=== PATIENT | female | born 1980 | race Caucasian/White ===

== ENCOUNTER 2017-06-20 14:05 | Emergency (ER) | payer BC ==
[~2017-06-20] VITALS: Ht 170.2 cm; Wt 72.6 kg
[~2017-06-20 14:05] MED LIST: ACIDOPHILUS1 CTB PO; CLINDAMYCIN HC300 MG PO; VENTOLIN H0.09 MG/Ac IH
--- NOTE | 2017-06-20 15:00 | Urgent Treatment Center Report ---
History of Present Issue Date/Time Seen by Provider 06/20/17 4825 Visit Reason Pt arrived:Wheelchair Presenting Problem:PT STATES SHE HURT HER LEFT FOOT ON SATURDAY. Location if Accident: Onset of symptoms date/time:/ or onset unknown for:MEDICAL HX UNKNOWN Have you (or family members/close friends) recently traveled outside the [place]? N If Yes, where/when: Have you had exposure to infectious disease within the past month? TB? Other? Specify: c/o left lateral foot pain. Missed a step and turned ankle on Saturday, 3 days ago. Still painful despite rest, ice, elevation. Swelling has improved, bruising has gotten worse. Pain worse w/ ambulation and ankle ROM. Denies N/T Source patient Exam Limitations no limitations ALLERGIES Coded Allergies: Penicillins (01/13/17) Home Medications Reported Medications Albuterol Sulfate (Ventolin Hfa) 0.09 MG IH DAILY #18 History Medical History General CAD? No Angina: No NM: No Hypertension? No Hyperlipidemia? No CHF? No DVT? No PE? No COPD? No Asthma? Yes Anemia? No GERD? No Gastric ulcers? No GI Bleed? No Hernia? No Thyroid Problems? No Hypothyroidism? No CVA? No Seizures? No Diabetes? No Renal Insuffiency? No UTI? No Stones? No BPH? No GB Disease: No Nephritic Syndrome? No Asplenia? No Hepatitis? No Sickle Cell Disease? No Arthritis? No Migraines? No Cataracts? No Glaucoma? No MRSA? No HIV? No TB? No Anxiety? No Depression? No Cancer? No Immunization HX DT/Tetanus Unknown Surgical Hx Previous Surgery?Y R INDEX FINGER PIN TO L FEMUR R PINKY TOE Social History Smoking Hx Smoker: Never Smoker Tobacco: No Alcohol Alcohol: No Review of Systems All Other Systems Reviewed and Negative Musculoskeletal see HPI, denies other (no other pain) Skin see HPI Psychiatric/Neurological see HPI Physical Exam Vital Signs Vital Signs Date Time Temp Pulse Resp B/P Pulse O2 O2 Flow FiO2 Ox Delivery Rate 06/20 1513 100.5 63 20 123/66 99 06/20 1418 100.5 63 20 123/66 99 General Appearance normal appearance, no apparent distress Respiratory Status No: respiratory distress. Cardiovascular no peripheral edema Peripheral Pulses Pulses normal Yes (DP/PT) Back gait abnormality (limping, favoring left) Extremities limited ROM left ankle due to pain, pain worse with inversion and dorsiflexion, mild swelling, ecchymosis and tenderness left lateral midfoot/ proximal 5th metatarsal Neurologic alert, no motor/sensory deficits Skin normal color, warm/dry Medical Decision Making LABS/Meds/Orders Pt receiving controlled substance in ED? No Results/Orders Orders Procedure Date/time Status STABILIZE JOINT 06/20 1500 Active FOOT-LT-3 VIEWS 06/20 1415 Active ANKLE-LT-3 VIEWS 06/20 1415 Active XRAY/CT/US XRAY/CT/US XRAY ankle (left), foot (left) XR interpretation by reviewed by me (w/ Dr. Dove, ER MD) Xray Results no acute findings but abnormal calcification distal tibia, ER MD suggest follow up for lead level Departure Departure Time of Disposition 1458 Disposition DC Home or Self Care(routine) Clinical Impression Primary Impression: Sprain of left foot Qualifiers: Encounter type: initial encounter Qualified Code: S93.602A - Unspecified sprain of left foot, initial encounter Condition STABLE Referrals NO REFERRAL we have provided you with a list of providers accepting patients. I would encourage you find him a new primary care provider and make an appt TINA as it can take weeks to get a new patient appointment. Be sure to tell them of abnormal xray and that a lead level was suggested. DAVID WALTERS DPM call office tomorrow. Report seen in [facility] this evening. xray negative but persistant pain. Patient Instructions DI for Foot Sprain, How to Apply an Yash Wrap, How To Perform RICE (Rest, Ice, Compress, Elevate), How to Use Crutches Additional Instructions * non weight bearing left foot. Use crutches * Rest * ice 15-20 mins 3-4 times a day * Yash wrap for support and swelling unless in shower. Be sure not too tight but not too loose either * Elevate as discussed as much as possible to help reduce swelling and therefore , pain * Ibuprofen every 6 hours as needed for pain and inflammation. If you need something more, you can take tylenol every 4 hours as needed as long as your primary care provider has told you it is ok to take both. Discharge Counseling Counseled pt/family regarding diagnosis, test results, medications/RX, home care, follow up needs at 1545
[2017-06-20 15:13] VITALS: BP 123/66
--- NOTE | 2017-06-21 08:29 | RADIOLOGY REPORT PS360 ---
FOOT-LT-3 VIEWS COMPARISON: None HISTORY: Left foot pain after injury TECHNIQUE: AP lateral and oblique views FINDINGS: There is no fracture or dislocation. Soft tissues are normal. The plantar arch is normal. IMPRESSION: Negative left foot
--- NOTE | 2017-06-21 08:29 | RADIOLOGY REPORT PS360 ---
ANKLE-LT-3 VIEWS COMPARISON: None HISTORY: Left ankle pain after injury TECHNIQUE: AP lateral and oblique views FINDINGS: The medial and lateral malleolus appear intact and the ankle mortise is normal. There is no soft tissue swelling. IMPRESSION: Negative left ankle
--- OUTSIDE RECORDS SUMMARY | 2017-06-27 20:07 | External Medical Summary Rpt | CCD ---
Author Author , [facility] Organization [facility] Address Unknown Phone Care Team Providers Care Insurance Risk Manager Name Role Phone BUTROS KYUNG, BUTROS Unavailable Unavailable KYUNG [facility], Unavailable Unavailable [facility] DAVE RYA, Unavailable Unavailable DAVE RYA DAVE RYA, Unavailable Unavailable DAVE RYA PREETI DUGAN, Unavailable Unavailable PREETI DUGAN [facility], Unavailable Unavailable [facility] # Unavailable Unavailable [id number], [facility] # [id number] [facility] Unavailable Unavailable [facility]ING, [facility] Unavailable Unavailable [facility]ING, [facility] Unavailable Unavailable BILL HOLDINGS, [facility]AT[facility]ILL [facility]INGS ISABELLE JIMENEZ, Unavailable Unavailable ISABELLE JIMENEZ [facility] Unavailable Unavailable [facility], [facility], [facility] Unavailable Unavailable DRUGS [facility], [facility] Unavailable Unavailable [facility] Unavailable Unavailable [facility], [facility] MUNIZ SYE, MUNIZ SYE Unavailable Unavailable [facility] Unavailable Unavailable EM[facility]Y PH[facility], [facility], [facility]GENC[facility]YS [facility], Unavailable [facility]available [facility] Unavailable Unavailable [facility] DAVID Purpose Continuity of Care Document - 11-15-2008 through 2016 Problems Code Diagnosis DOS Provider Status 60635 ASTHMA, 06-02-2014 [facility] PRIMARY , CARE CLI UNSPECIFIED STATUS 2449 UNSPECIFIED 05-19-2014 [facility] HYPOTHYROID ISM 3671 MYOPIA 11-16-2013 DAVE RYA 89920 ASTHMA 07-11-2010 [facility] UNSPECIFIED [facility] WITH DAVID STATUS ASTHMATICUS 47493 ASTHMA 07-11-2010 [facility] UNSPECIFIED N EMERGENCY WITH PHYS EXACERBATIO N 21993 SHORTNESS 07-11-2010 [facility] [place] [facility] 75666 OTHER 07-11-2010 [facility] DYSPNEA AND UEHLING RESPIRATORY ABNORMALITI ES V1270 PERSONAL 07-11-2010 [facility] HISTORY [facility] UNSPECIFIED DAVID DIGESTIVE DISEASE 7831 ABNORMAL 06-19-2010 [facility] 7850 UNSPECIFIED 06-19-2010 [facility] TACHYCARDIA HOLDING V5869 LONG-TERM 06-19-2010 [facility] (CURRENT) AMERIC USE OF HOLDING OTHER MEDICATIONS 5990 URINARY 05-09-2010 [facility] TRACT [facility] INFECTION DAVID SITE NOT SPECIFIED 6259 UNSPEC 05-09-2010 [facility] SYMPTOM [facility] ASSOC DAVID W/FEMALE GENITAL ORGANS 7881 DYSURIA 05-09-2010 [facility] DAVID 15073 ABDOMINAL 05-09-2010 [facility] PAIN, N EMERGENCY UNSPECIFIED PHYS SITE 55772 LUMP OR 04-17-2010 [facility] BREAST PLLC V259 UNSPECIFIED 03-30-2010 [facility] V7231 ROUTINE 03-30-2010 LABORATORY GYNECOLOGIC [facility] OF [facility] EXAMINATION HOLDINGS 4930 EXTRINSIC 03-27-2010 [facility] ASTHMA SURGICAL V0481 NEED 09-06-2009 [facility] PROPHYLACTI CLINIC C PLLC VACCINATION &INOCULATIO N FLU V0489 NEED PROPH 09-06-2009 [facility] OTH VIRAL DZ 7840 HEADACHE 04-07-2009 [facility] 7820 DISTURBANCE 11-15-2008 [facility] SKIN N EMERGENCY SENSATION SERV PC Medications Na ND Rx Da Fi Fi Am Da Di Ph RX Ph St me C No te ll ll ou ys ag ar # ys at rm s nt no ma ic us Or Da si cy ia de te s n re d AZ 00 10 10 0 6. 5 KR 60 IRVING Ac IT 09 -2 -2 00 OG 81 NE ti HR 37 6- 7- 0 ER 15 S ve OM 14 20 20 4 GR YC 61 10 10 PH EG IN 8 AR OR MA Y 25 CY C 0 # MG 24 TA 71 BL 2 ET ME 59 10 10 0 21 6 KR 60 IRVING Ac TH 74 -2 -2 .0 OG 81 NE ti YL 60 6- 7- 00 ER 15 S ve AL 00 20 20 5 GR ED 10 10 10 PH EG NI 3 AR OR SO MA Y LO CY C NE # 4 24 MG 71 2 DO SE PK 00 10 10 0 [address] Ac 00 -2 -2 .0 OG 80 EN ti 60 5- 5- 00 ER 50 NE ve 11 20 20 1 N 73 10 10 PH BR 1 AR EN MA DA CY J # 24 71 2 AD 00 10 10 0 [address] Ac VA 17 -2 -2 .0 OG 80 EN ti IR 30 5- 5- 00 ER 50 NE ve 69 20 20 2 N 10 50 10 10 PH BR 0- 0 AR EN 50 MA DA CY J DI # SK US 24 71 2 AL 00 10 10 0 [address] Ac BU 48 -2 -2 0. OG 80 EN ti TE 79 5- 5- 00 ER 53 NE ve RO 50 20 20 0 9 N L 16 10 10 PH BR TRINIDAD 0 AR EN L MA DA 2. CY J 5 # MG /3 24 [address] 64 10 10 2 60 30 KR 60 PA Ac 67 -2 -2 .0 OG 80 RK ti 90 5- 5- 00 ER 62 ER ve 90 20 20 7 60 10 10 PH NC 1 AR NC MA CARUSO CY # 24 71 2 64 09 09 1 60 30 KR 60 PA Ac 67 -2 -2 .0 OG 73 RK ti 90 2- 2- 00 ER 99 ER ve 90 20 20 2 60 10 10 PH NC 1 AR NC MA CARUSO CY # 24 71 2 AL 00 07 09 1 [address] Ac BU 48 -0 -2 0. OG 60 EN ti TE 79 7- 1- 00 ER 11 NE ve RO 50 20 20 0 3 N L 12 10 10 PH BR TRINID[place] 5 AR EN L MA DA 2. CY J 5 # MG /3 24 [address] 00 07 09 3 28 28 KR 60 PA Ac 43 -1 -2 .0 OG 61 RK ti 00 5- 1- 00 ER 45 ER ve 53 20 20 7 01 10 10 PH NC 4 AR NC MA CARUSO CY # 24 71 2 00 10 09 2 [address] Ac 00 -2 -2 .0 OG 14 EN ti 60 9- 0- 00 ER 81 NE ve 11 20 20 1 N 73 09 10 PH BR 1 AR EN MA DA CY J # 24 71 2 AD 00 07 09 2 [address] Ac VA 17 -0 -2 .0 OG 60 EN ti IR 30 7- 0- 00 ER 11 NE ve 69 20 20 0 N 10 50 10 10 PH BR 0- 0 AR EN 50 MA DA CY J DI # SK US 24 71 2 65 08 08 0 6. 2 KR 60 SH Ac 16 -2 -2 00 OG 68 AH ti 20 5- 5- 0 ER 26 ve 52 20 20 2 SY 01 10 10 PH ED 0 AR S MA CY # 24 71 2 NI 00 08 08 0 13 6 KR 60 SH Ac TR 18 -2 -2 .0 OG 68 AH ti OF 50 5- 5- 00 ER 26 ve UR 12 20 20 3 SY AN 20 10 10 PH ED TO 1 AR S IN AXEL CHAVEZ MO # NO -M 24 CR 71 2 10 0 MG AL 00 07 08 1 [address] Ac BU 48 -0 -1 0. OG 60 EN ti TE 79 7- 9- 00 ER 11 NE ve RO 50 20 20 0 3 N L 12 10 10 PH BR TRINIDAD 5 AR EN L MA DA 2. CY J 5 # MG /3 24 [address] 00 10 08 2 [address] Ac 00 -2 -1 .0 OG 14 EN ti 60 9- 8- 00 ER 81 NE ve 11 20 20 1 N 73 09 10 PH BR 1 AR EN MA DA CY J # 24 71 2 AD 00 07 08 2 [address] Ac VA 17 -0 -1 .0 OG 60 EN ti IR 30 7 8- 00 ER 11 NE ve 69 20 20 0 N 10 50 10 10 PH BR 0- 0 AR EN 50 MA DA CY J DI # SK US 24 71 2 00 07 08 3 28 28 KR 60 PA Ac 43 -1 -1 .0 OG 61 RK ti 00 5- 8- 00 ER 45 ER ve 53 20 20 7 01 10 10 PH NC 4 AR NC MA CARUSO CY # 24 71 2 64 07 08 1 60 30 KR 60 PA Ac 67 -1 -1 .0 OG 61 RK ti 90 5- 8- 00 ER 53 ER ve 90 20 20 5 60 10 10 PH NC 1 AR NC MA CARUSO CY # 24 71 2 VA 00 07 07 0 70 7 KR 60 PA Ac ND 24 -2 -2 .0 OG 62 RK ti AZ 50 0- 0- 00 ER 18 ER ve OL 86 20 20 4 E 07 10 10 PH NC VA 0 AR NC GI MA CARUSO NA CY L # 0. 75 24 % 71 GE 2 L 00 07 07 0 14 7 KR 60 PA Ac 59 -1 -1 .0 OG 61 RK ti 13 5- 5- 00 ER 45 ER ve 97 20 20 5 05 10 10 PH NC 0 AR NC MA CARUSO CY # 24 71 2 00 07 07 3 28 28 KR 60 PA Ac 43 -1 -1 .0 OG 61 RK ti 00 5- 5- 00 ER 45 ER ve 53 20 20 7 01 10 10 PH NC 4 AR NC MA CARUSO CY # 24 71 2 64 07 07 1 60 30 KR 60 PA Ac 67 -1 -1 .0 OG 61 RK ti 90 5- 5- 00 ER 53 ER ve 90 20 20 5 60 10 10 PH NC 1 AR NC MA CARUSO CY # 24 71 2 AD 00 07 07 2 [address] Ac VA 17 -0 -0 .0 OG 60 EN ti IR 30 7- 7- 00 ER 11 NE ve 69 20 20 0 N 10 50 10 10 PH BR 0- 0 AR EN 50 MA DA CY J DI # SK US 24 71 2 LE 00 10 07 2 [address] Ac VO 52 -2 -0 .0 OG 14 EN ti TH 71 7- 6- 00 ER 49 NE ve YR 34 20 20 4 N OX 11 09 10 PH BR IN 0 AR EN E MA DA 25 CY J # MC G 24 TA 71 BL 2 ET 00 10 07 2 [address] Ac 00 -2 -0 .0 OG 14 EN ti 60 9- 6- 00 ER 81 NE ve 11 20 20 1 N 73 09 10 PH BR 1 AR EN MA DA CY J # 24 71 2 59 10 07 2 7[address] Ac 31 -2 -0 29 OG 14 EN ti 00 9- 6- 9 ER 81 NE ve 17 20 20 3 N 78 09 10 PH BR 0 AR EN MA DA CY J # 24 71 2 AL 00 10 07 [address] Ac BU 48 -2 -0 0. OG 14 EN ti TE 79 9- 6- 00 ER 81 NE ve RO 50 20 20 0 4 N L 12 09 10 PH BR TRINIDAD 5 AR EN L MA DA 2. CY J 5 # MG /3 24 [address] 59 10 03 2 7[address] Ac 31 -2 -2 29 OG 14 EN ti 00 7- 9- 9 ER 49 NE ve 17 20 20 1 N 78 09 10 PH BR 0 AR EN MA DA CY J # 24 71 2 AL 00 10 03 [address] Ac BU 48 -2 -2 0. OG 14 EN ti TE 79 9- 9- 00 ER 81 NE ve RO 50 20 20 0 4 N L 12 09 10 PH BR TRINIDAD 5 AR EN L MA DA 2. CY J 5 # MG /3 24 [address] LE 00 12 03 [address] Ac VO 52 -1 -2 .0 OG 23 EN ti TH 71 4- 9- 00 ER 90 NE ve YR 34 20 20 9 N OX 20 09 10 PH BR IN 1 AR EN E MA DA 50 CY J # MC G 24 TA 71 BL 2 ET 59 01 03 2 8[address] Ac 31 -2 -2 50 OG 31 EN ti 00 8- 9- 0 ER 72 NE ve 57 20 20 9 N 92 10 10 PH BR 0 AR EN MA DA CY J # 24 71 2 00 10 03 2 [address] Ac 00 -2 -0 .0 OG 14 EN ti 60 7- 4- 00 ER 49 NE ve 11 20 20 5 N 73 09 10 PH BR 1 AR EN MA DA CY J # 24 71 2 LE 00 12 03 2 [address] Ac VO 52 -1 -0 .0 OG 23 EN ti TH 71 4- 4- 00 ER 90 NE ve YR 34 20 20 9 N OX 20 09 10 PH BR IN 1 AR EN E MA DA 50 CY J # MC G 24 TA 71 BL 2 ET 59 01 03 2 8[address] Ac 31 -2 -0 50 OG 31 EN ti 00 8- 4- 0 ER 72 NE ve 57 20 20 9 N 92 10 10 PH BR 0 AR EN MA DA CY J # 24 71 2 59 10 02 01 7[address] Ac 31 -2 -2 29 OG 14 EN ti 00 7- 6- 9 ER 49 NE ve 17 20 20 1 N 78 09 10 PH BR 0 AR EN M DA L- J 71 2 59 01 02 00 8[address] Ac 31 -2 -2 50 OG 31 EN ti 00 8- 6- 0 ER 72 NE ve 57 20 20 9 N 92 10 10 PH BR 0 AR EN M DA L- J 71 2 AZ 00 01 02 00 6[address] Ac IT 2 - 00 OG 31 EN ti HR 37 8- 1- 0 ER 72 NE ve OM 14 20 20 7 N YC 61 10 10 PH BR IN 8 AR EN M DA 25 L- J 0 71 MG 2 TA BL ET 00 01 02 00 5[address] Ac - 00 OG 31 EN ti 51 8- 1- 0 ER 72 NE ve 29 20 20 8 N 00 10 10 PH BR 6 AR EN M DA L- J 71 2 ME 59 01 02 00 [address] Ac TH 74 -2 -1 .0 OG 31 EN ti YL 60 8- 1- 00 ER 73 NE ve AL 00 20 20 0 N ED 10 10 10 PH BR NI 3 AR EN SO M DA LO L- J NE 71 4 2 MG DO SE PK 59 10 01 02 8[address] Colin 31 -2 -2 50 OG 14 EN ti 00 7- 8- 0 ER 49 NE ve 57 20 20 3 N 92 09 10 PH BR 0 AR EN M DA L- J 71 2 59 10 12 01 8[address] Colin 31 -2 -3 50 OG 14 EN ti 00 7- 1- 0 ER 49 NE ve 57 20 20 3 N 92 09 09 PH BR 0 AR EN M DA L- J 71 2 LE 00 12 12 00 [address] Ac VO 52 -1 -3 .0 OG 23 EN ti TH 71 4- 1- 00 ER 90 NE ve YR 34 20 20 9 N OX 20 09 09 PH BR IN 1 AR EN E M DA 50 L- J 71 MC 2 G TA BL ET 00 10 12 01 [address] Ac 00 -2 -1 .0 OG 14 EN ti 60 7- 7- 00 ER 49 NE ve 11 20 20 5 N 73 09 09 PH BR 1 AR EN M DA L- J 71 2 LE 00 10 12 01 [address] Ac VO 52 -2 -1 .0 OG 14 EN ti TH 71 7- 7- 00 ER 49 NE ve YR 34 20 20 4 N OX 10 09 09 PH BR IN 1 AR EN E M DA 25 L- J 71 MC 2 G TA BL ET 59 10 12 00 8[address] Colin 31 -2 -1 50 OG 14 EN ti 00 7- 7- 0 ER 49 NE ve 57 20 20 3 N 92 09 09 PH BR 0 AR EN M DA L- J 71 2 LE 00 10 11 00 [address] Ac VO 52 -2 -0 .0 OG 14 EN ti TH 71 7- 5- 00 ER 49 NE ve YR 34 20 20 4 N OX 10 09 09 PH BR IN 1 AR EN E M DA 25 L- J 71 MC 2 G TA BL ET 49 10 11 00 [address] Ac 50 -2 -0 0. OG 14 EN ti 20 7- 5- 00 ER 48 NE ve 69 20 20 0 9 N 76 09 09 PH BR 1 AR EN M DA L- J 71 2 00 10 11 00 [address] Ac 00 -2 -0 .0 OG 14 EN ti 60 7- 5- 00 ER 49 NE ve 11 20 20 5 N 73 09 09 PH BR 1 AR EN M DA L- J 71 2 59 10 11 00 7[address] Ac 31 -2 -0 29 OG 14 EN ti 00 7- 5- 9 ER 49 NE ve 17 20 20 1 N 78 09 09 PH BR 0 AR EN M DA L- J 71 2 59 07 10 00 8[address] Colin 31 -2 -2 50 OG 76 EN ti 00 3- 2- 0 ER 84 NE ve 57 20 20 0 N 92 09 09 PH BR 0 AR EN M DA L- J 71 2 00 07 10 02 [address] Colin 00 -2 -0 .0 OG 76 EN ti 60 3- 8- 00 ER 83 NE ve 11 20 20 8 N 73 09 09 PH BR 1 AR EN M DA L- J 71 2 LE 00 09 09 00 [address] Colin VO 52 -1 -2 .0 OG 05 EN ti TH 71 0- 4- 00 ER 31 NE ve YR 34 20 20 4 N OX 10 09 09 PH BR IN 1 AR EN E M DA 25 L- J 71 MC 2 G TA BL ET 00 07 09 01 [address] Ac 00 -2 -1 .0 OG 76 EN ti 60 3- 0- 00 ER 83 NE ve 11 20 20 8 N 73 09 09 PH BR 1 AR EN M DA L- J 71 2 59 07 07 00 7[address] Colin 31 -2 -3 29 OG 76 EN ti 00 3- 0- 9 ER 83 NE ve 17 20 20 9 N 78 09 09 PH BR 0 AR EN M DA L- J 71 2 49 07 07 00 [address] Ac 50 -2 -3 0. OG 76 EN ti 20 3- 0- 00 ER 84 NE ve 69 20 20 0 1 N 72 09 09 PH BR 4 AR EN M DA L- J 71 2 00 07 07 00 [address] Ac 00 -2 -3 .0 OG 76 EN ti 60 3- 0- 00 ER 83 NE ve 11 20 20 8 N 73 09 09 PH BR 1 AR EN M DA L- J 71 2 59 10 07 02 8. 25 KR 69 BU Ac 31 -1 -3 50 OG 30 TR ti 00 6- 0- 0 ER 77 OS ve 57 20 20 4 92 08 09 PH RE 0 AR ZK M AL L- LA 71 2 59 10 07 01 8. 20 KR 69 BU Ac 31 -1 -0 50 OG 30 TR ti 00 6- 2- 0 ER 77 OS ve 57 20 20 4 92 08 09 PH RE 0 AR ZK M AL L- LA 71 2 59 10 06 00 8. 20 KR 69 BU Ac 31 -1 -1 50 OG 30 TR ti 00 6- 8- 0 ER 77 OS ve 57 20 20 4 92 08 09 PH RE 0 AR ZK M AL L- LA 71 2 16 05 04 00 18 30 RO 15 Ac 25 -1 -0 0. SS 21 LL ti 20 9- 9- 00 76 EY ve [address] 1 76 08 09 UG AN 6 S IT A L Immunization Name Date Rout CVX Reac Dose Comm Prov Is Faci e tion ent ider Refu lity Give sed n IIV3 12-2 141 DREN No FAMI 2-20 NEN, LY VACC 09 CARE INE BREN SPLI DA J CLIN T IC VIRU PLLC S 0.5 ML DOSA GE IM USE Procedures Procedure DOS Code Location Performer Comment COLLECTIO 88684 [facility] N VENOUS [address] [place] [address] [place] [address] [facility] THYROID [address] [place] [address] STIMULATI NG HORMONE TSH OPHTH 38190 [facility] 4 RYA RYA XM&EVAL COMPRE NEW PT 1/> VST RADIOLOGI 55068 [facility] C EXAM 0 [place] CHEST 2 [facility] DAV[facility] VIEWS FRONTAL&L ATERAL INJ J2930 [facility] METHYLPRD 0 [place] NISOLONE [facility] DAVID SODIUM SUCCNAT TO 125 MG PRESSURIZ 51270 [facility] ED/NONPRE 0 [place] SSURIZED DAV[facility] DAVID INHALATIO N TREATMENT LIPID 80221 [facility] PANEL 0 [facility] HOLDING HOLDING GENERAL 62814 [facility] HEALTH 0 AMERIC AMERIC PANEL HOLDING HOLDING URNLS DIP 78115 [facility] 0 [place] STICK/TAB [facility] LET REAGENT AUTO MICROSCOP Y SUSCEPTIB 93530 [facility] LTY STDY 0 [place] ANTIMICRB [facility] IAL MICRO/AGA R DILUTJ GONADOTRO 22964 [facility] PIN 0 [place] CHORIONIC [facility]ID DAVID QUALITATI VE CULTURE 20967 [facility] BCT 0 [place] ISOL&PRSM [facility] DAVID PTV ID ISOLATE EA URINE NEBULIZER E0570 [facility] WITH 0 SURGICAL SURGICAL COMPRESSO R ADMN SET A7003 [facility] SM VOL 0 SURGICAL SURGICAL NONFILTR PNEUMAT NEBULIZR DISPBL AREO MASK A7015 [facility] USED W/ 0 SURGICAL SURGICAL DME NEB US BREAST 45959 [facility] REAL 0 [place] TIME DAVID DAVID W/IMAGE DOCUMENTA TION IADNA 89647 LABORATOR LABORATOR CHLAMYDIA 0 Y MUNA OF Y MUNA OF BILL BILL TRACHOMAT HOLDINGS HOLDINGS IS AMPLIFIED PROBE TQ IADNA 14169 LABORATOR LABORATOR PAPILLOMA 0 Y MUNA OF Y MUNA OF VIRUS BILL BILL HUMAN HOLDINGS HOLDINGS AMPLIFIED PROBE TQ CYTP C/V 60252 LABORATOR LABORATOR AUTO THIN 0 Y MUNA OF Y MUNA OF LYR BILL BILL PREPJ SCR HOLDINGS HOLDINGS MNL RESCR PHYS IADNA 96199 LABORATOR LABORATOR NEISSERIA 0 Y MNUA OF Y MUNA OF BILL BILL GONORRHOE HOLDINGS HOLDINGS AE AMPLIFIED PROBE TQ ADMN SET A7003 [facility] SM VOL 0 SURGICAL SURGICAL NONFILTR PNEUMAT NEBULIZR DISPBL SPMTRY 86430 [facility], W/VC 0 CARE PREETI J EXPIRATOR CLINIC Y CHRISTOPHER PLLC W/WO MXML VOL VNTJ IIV3 31952 [facility], VACCINE 9 CARE PREETI J SPLIT CLINIC VIRUS 0.5 PLLC ML DOSAGE IM USE IM ADM 91676 [facility], PRQ ID 9 CARE PREETI J SUBQ/IM CLINIC [place] [address] [facility] THYROID 9 AMERIC AMERIC STIMULATI HOLDING HOLDING NG HORMONE TSH NONINVASI 13770 [facility], VE 9 CARE PREETI J EAR/PULSE CLINIC [place] [address] [facility] THYROID 9 AMERIC AMERIC STIMULATI HOLDING HOLDING NG HORMONE TSH SPMTRY 10385 [facility], W/VC 9 CARE PREETI J EXPIRATOR CLINIC Y CHRISTOPHER PLLC W/WO MXML VOL VNTJ BRNCDILAT 10078 [facility], RSPSE 9 CARE PREETI J SPMTRY CLINIC PRE&POST- PLLC BRNCDILAT ADMN ECHO 98938 [facility] TTHRC R-T 9 [facility] 2D [facility] W/WOM-MOD [facility] SPEC&COLR D THYROID 05365 [facility] HORM 9 AMERIC AMERIC UPTK/THYR HOLDING HOLDING OID HORMONE BINDING RATIO ECG 40873 [facility], ROUTINE 9 CARE PREETI J ECG CLINIC W/LEAST PLLC 12 LDS W/I&[place] [address] LAB [facility] THYROXINE 9 AMERIC AMERIC TOTAL HOLDING HOLDING NONINVASI 16537 [facility], VE 9 CARE PREETI J EAR/PULSE CLINIC OXIMETRY PLLC SINGLE DETER GENERAL 48241 [facility] HEALTH 9 AMERIC AMERIC PANEL HOLDING HOLDING APPLICATI 25973 [facility] SHORT 9 NIA Da Silva ARM EMERGENCY SPLINT SERV PC FOREARM-H AND STATIC Encounters Encounter Start End Date Code Location Performer Type Date OFFICE 63983 [facility] 4 4 [facility]ULT [facility] T VISIT PRIMARY 15 CARE CLI MINUTES OFFICE 21421 [facility] 4 4 ADULT [facility] T VISIT PRIMARY 15 CARE CLI MINUTES [facility]OSPITAL [facility] - OTHER 4 4 HOSPITAL OFFICE 72497 [facility] OUT[facility] 4 4 ADULT KY[facility]G T NEW 45 PRIMARY MINUTES CARE CLI EMERGENCY 84324 [facility] 0 0 [facility] T VISIT HIGH/URGE NT SEVERITY [facility] 0 0 [facility] - 0 0 [facility] EMERGENCY 04676 [facility] 0 [facility] V[facility] PHYS HIGH/URGE NT SEVERITY EMERGENCY 46333 [facility] 0 0 [facility] VISIT MODERATE SEVERITY OFFICE 37020 FAMILY DRENNEN, OUTPATIEN 0 0 CARE PREETI J T VISIT CLINIC [address] [facility] - 0 0 [facility] PERIODIC 92956 [facility] DRENNEN, PREVENTIV 0 0 CARE PREETI J E MED EST CLINIC PATIENT PLLC 18-39 YRS OFFICE 12800 FAMILY DRENNEN, OUTPATIEN 0 0 CARE PREETI J T VISIT CLINIC 15 PLLC MINUTES OFFICE [id number] FAMILY DRENNEN, OUTPATIEN 9 9 CARE PREETI J T VISIT CLINIC 15 PLLC MINUTES OFFICE [id number] FAMILY DRENNEN, OUTPATIEN 9 9 CARE PREETI J T VISIT CLINIC 15 PLLC MINUTES OFFICE 73716 FAMILY DRENNEN, OUTPATIEN 9 9 CARE PREETI J T VISIT CLINIC [facility] PLLC MINUTES [facility] 9 IAN [facility] OFFICE 77764 FAMILY DRENNEN, OUTPATIEN 9 9 CARE PREETI J T VISIT CLINIC 15 PLLC MINUTES EMERGENCY 95856 [facility] JIMENE[facility], 9 9 [facility] EMERGENCY T VISIT SERV PC MODERATE SEVERITY
--- OUTSIDE RECORDS SUMMARY | 2017-06-27 20:07 | External Medical Summary Rpt | CCD ---
Author Author , [facility] Organization [facility] Address Unknown Phone Care Team Providers Care Licensing Engineer Name Role Phone BUTROS KYUNG, BUTROS Unavailable Unavailable KYUNG [facility], Unavailable Unavailable [facility] DAVE RYA, Unavailable Unavailable DAVE RYA DAVE RYA, Unavailable Unavailable DAVE RYA PREETI DUGAN, Unavailable Unavailable PREETI DUGAN [id number], Unavailable Unavailable [facility] # Unavailable Unavailable [id number], [facility] # [id number] [facility] Unavailable Unavailable HOLDING, [facility] Unavailable Unavailable HOLDING, [facility] LABORATORY [facility] Unavailable Unavailable BILL HOLDINGS, LABORATORY [facility] BILL HOLDINGS ISABELLE JIMENEZ, Unavailable Unavailable ISABELLE JIMENEZ [facility] Unavailable Unavailable CARE [facility], [facility], [facility] Unavailable Unavailable DRUGS [facility], [facility] Unavailable Unavailable SURGICAL [facility] Unavailable Unavailable [facility], [facility] MUNIZ SYE, MUNIZ SYE Unavailable Unavailable [facility] Unavailable Unavailable EMER[facility]Y PH[facility], [facility], Unavailable Unavailable [facility] Unavailable Unavailable [facility] DAVID Purpose Continuity of Care Document - 11-15-2008 through 2016 Problems Code Diagnosis DOS Provider Status 87135 ASTHMA, 06-02-2014 [facility] UNSPECIFIED PRIMARY , CARE CLI UNSPECIFIED STATUS 2449 UNSPECIFIED 05-19-2014 [facility] HYPOTHYROID ISM 3671 MYOPIA 11-16-2013 DAVE RYA 32327 ASTHMA 07-11-2010 [facility] UNSPECIFIED [facility] WITH DAVID STATUS ASTHMATICUS 70665 ASTHMA 07-11-2010 [facility] UNSPECIF[facility] N EMERGENCY WITH PHYS EXACERBATIO N 79229 SHORTNESS 07-11-2010 [facility] [place] [facility] RADIOLOG[facility] 76761 OTHER 07-11-2010 [facility] DYSPNEA AND [place] RESPIRATORY ABNORMALITI ES V1270 PERSONAL 07-11-2010 [facility] HISTORY [facility] UNSPECIFIED DAVID DIGESTIVE DISEASE 7831 ABNORMAL 06-19-2010 [facility] WEIGHT GAIN AMERIC HOLDING 7850 UNSPECIFIED 06-19-2010 [facility] TACHYCARDIA HOLDING V5869 LONG-TERM 06-19-2010 LAB [facility] (CURRENT) AMERIC USE OF HOLDING OTHER MEDICATIONS 5990 URINARY 05-09-2010 [facility] TRACT [facility] INFECTION DAVID SITE NOT SPECIFIED 6259 UNSPEC 05-09-2010 [facility] SYMPTOM [facility] ASSOC DAVID W/FEMALE GENITAL ORGANS 7881 DYSURIA 05-09-2010 [facility] DAVID 98678 ABDOMINAL 05-09-2010 [facility], N EMERGENCY UNSPECIFIED PHYS SITE 23777 [place] 04-17-2010 [facility] BREAST PLLC V259 UNSPECIFIED 03-30-2010 [facility] V7231 ROUTINE 03-30-2010 LABORATORY GYNECOLOGIC [facility] OF [facility] EXAMINATION HOLDINGS 4930 EXTRINSIC 03-27-2010 [facility] ASTHMA SURGICAL V0481 NEED 09-06-2009 [facility] PROPHYLACTI CLINIC C PLLC VACCINATION &INOCULATIO N FLU V0489 NEED PROPH 09-06-2009 [facility] 7840 HEADACHE 04-07-2009 [...] 6- 7- 00 ER 15 S ve OR 00 20 20 5 GR ED 10 [...] 20 20 7 60 10 10 PH DC 1 AR NC MA CARUSO CY # 24 71 2 64 09 09 1 60 30 KR 60 PA Ac 67 -2 -2 .0 OG 73 RK ti 90 2- 2- 00 ER 99 ER ve 90 20 20 2 60 10 10 PH DC 1 AR NC MA CARUSO CY # [...] 20 20 7 01 10 10 PH DC 4 AR NC MA CARUSO CY # [...] 20 20 7 01 10 10 PH DC 4 AR NC MA CARUSO CY # 24 71 2 64 07 08 1 60 30 KR 60 PA Ac 67 -1 -1 .0 OG 61 RK ti 90 5- 8- 00 ER 53 ER ve 90 20 20 5 60 10 10 PH DC 1 AR NC MA CARUSO CY # 24 71 2 VA 00 07 07 0 70 7 KR 60 PA Ac ND 24 -2 -2 .0 OG 62 RK ti AZ 50 0- 0- 00 ER 18 ER ve OL 86 20 20 4 E 07 10 10 PH DC VA 0 AR NC GI MA CARUSO NA CY L # 0. 75 24 % 71 GE 2 L 00 07 07 0 14 7 KR 60 PA Ac 59 -1 -1 .0 OG 61 RK ti 13 5- 5- 00 ER 45 ER ve 97 20 20 5 05 10 10 PH DC 0 AR NC MA CARUSO CY # 24 71 2 00 07 07 3 28 28 KR 60 PA Ac 43 -1 -1 .0 OG 61 RK ti 00 5- 5- 00 ER 45 ER ve 53 20 20 7 01 10 10 PH DC 4 AR NC MA CARUSO CY # 24 71 2 64 07 07 1 60 30 KR 60 PA Ac 67 -1 -1 .0 OG 61 RK ti 90 5- 5- 00 ER 53 ER ve 90 20 20 5 60 10 10 PH DC 1 AR NC MA CARUSO CY # [...] 8- 1- 00 ER 73 NE ve OR 00 20 20 0 N ED 10 [...] Procedure DOS Code Location Performer Comment COLLECTIO 00282 [facility] N VENOUS [address] [place] [address] [place] [address] [facility] THYROID [address] [place] [address] STIMULATI NG HORMONE TSH OPHTH 05666 [facility] 4 RYA RYA XM&EVAL COMPRE NEW PT 1/> VST RADIOLOGI 81733 [facility] C EXAM 0 [place] CHEST 2 DAVID DAVID VIEWS FRONTAL&L ATERAL INJ J2930 [facility] METHYLPRD 0 [place] NISOLONE DAVID DAVID SODIUM SUCCNAT TO 125 MG PRESSURIZ 91182 [facility] ED/NONPRE 0 [place] SSURIZED DAVID DAVID INHALATIO N TREATMENT LIPID 89381 LAB [facility] PANEL 0 AMERIC AMERIC HOLDING HOLDING GENERAL 49284 LAB MUNA LAB [facility] HEALTH 0 AMERIC AMERIC PANEL HOLDING HOLDING URNLS DIP 92316 [facility] 0 [place] STICK/TAB DAVID DAVID LET REAGENT AUTO MICROSCOP Y SUSCEPTIB 84681 [facility] LTY STDY 0 [place] ANTIMICRB DAVID DAVID IAL MICRO/AGA R DILUTJ GONADOTRO 17851 [facility] PIN 0 [place] CHORIONIC DAVID DAVID QUALITATI VE CULTURE 15115 [facility] BCT 0 [place] ISOL&PRSM DAVID DAVID PTV ID ISOLATE EA URINE NEBULIZER E0570 [facility] K[facility] WITH 0 SURGICAL SURGICAL COMPRESSO R ADMN SET A7003 [facility] SM VOL 0 SURGICAL SURGICAL NONFILTR PNEUMAT NEBULIZR DISPBL AREO MASK A7015 [facility] K[facility] USED W/ 0 SURGICAL SURGICAL DME NEB US BREAST 71118 [facility] REAL 0 [place] TIME DAVID DAVID W/IMAGE DOCUMENTA TION IADNA 45906 LABORATOR LABORATOR CHLAMYDIA 0 Y MUNA OF Y MUNA OF BILL BILL TRACHOMAT HOLDINGS HOLDINGS IS AMPLIFIED PROBE TQ IADNA 78524 LABORATOR LABORATOR PAPILLOMA 0 Y MUNA OF Y MUNA OF VIRUS BILL BILL HUMAN HOLDINGS HOLDINGS AMPLIFIED PROBE TQ CYTP C/V 46946 LABORATOR LABORATOR AUTO THIN 0 Y MUNA OF Y MUNA OF LYR BILL BILL PREPJ SCR HOLDINGS HOLDINGS MNL RESCR PHYS IADNA 01189 LABORATOR LABORATOR NEISSERIA 0 Y MUNA OF Y MUNA OF BILL BILL GONORRHOE HOLDINGS HOLDINGS AE AMPLIFIED PROBE TQ ADMN SET A7003 [facility] KENYON SM VOL 0 SURGICAL SURGICAL NONFILTR PNEUMAT NEBULIZR DISPBL SPMTRY 13179 [facility]ILY DUGAN, W/VC 0 CARE PREETI J EXPIRATOR CLINIC Y [facility]RISTOPHER PLLC W/WO MXML VOL VNTJ IIV3 17138 [facility] DUGAN, VACCINE 9 CARE PREETI J SPLIT CLINIC VIRUS 0.5 PLLC ML DOSAGE IM USE IM ADM 56477 FAMILY DUGAN, PRQ ID 9 CARE PREETI J SUBQ/IM CLINIC NJ[place] [address] LAB [facility]NA LAB [facility] THYROID 9 AMERIC AMERIC STIMULATI HOLDING HOLDING NG HORMONE TSH NONINVASI 74960 FAMILY DUGAN, VE 9 CARE PREETI J EAR/PULSE CLINIC [place] [address] LAB [facility]NA LAB [facility] THYROID 9 AMERIC AMERIC STIMULATI HOLDING HOLDING NG HORMONE TSH SPMTRY 10106 FAMILY DUGAN, W/VC 9 CARE PREETI J EXPIRATOR CLINIC Y CHRISTOPHER PLLC W/WO MXML VOL VNTJ BRNCDILAT 35701 FAMILY DUGAN, RSPSE 9 CARE PREETI J SPMTRY CLINIC PRE&POST- PLLC BRNCDILAT ADMN ECHO 24956 [facility] TTHRC R-T 9 [facility] 2D [facility] W/WOM-MOD [facility] SPEC&COLR D THYROID 72695 LAB MUNA LAB [facility] HORM 9 AMERIC AMERIC UPTK/THYR HOLDING HOLDING OID HORMONE BINDING RATIO ECG 47485 FAMILY DUGAN, ROUTINE 9 CARE PREETI J ECG CLINIC W/LEAST PLLC 12 LDS W/I&[place] [address] LAB MUNA LAB [facility] THYROXINE 9 AMERIC AMERIC TOTAL HOLDING HOLDING NONINVASI 34651 FAMILY DUGAN, VE 9 CARE PREETI J EAR/PULSE CLINIC OXIMETRY PLLC SINGLE DETER GENERAL 41128 LAB [facility]NA [facility] HEALTH 9 AMERIC AMERIC PANEL HOLDING HOLDING APPLICATI 38085 [facility] SHORT 9 NIA Da Silva ARM EMERGENCY SPLINT SERV PC FOREARM-H AND STATIC Encounters Encounter Start End Date Code Location Performer Type Date OFFICE 57127 [facility] 4 4 ADULT KYUNG T VISIT PRIMARY 15 CARE CLI MINUTES OFFICE 29363 [facility] 4 4 ADULT KYUNG T VISIT PRIMARY 15 CARE CLI MINUTES HOSPITAL [facility] - OTHER 4 4 HOSPITAL OFFICE 01223 [facility] OUTPATIEN 4 4 ADULT KYUNG T NEW 45 PRIMARY MINUTES CARE CLI EMERGENCY 44427 [facility] 0 0 [facility] T VISIT HIGH/URGE NT SEVERITY [facility] 0 0 [facility] - 0 0 [facility] EMERGENCY 75486 [facility] MUNIZ SYE 0 0 [facility] PHYS HIGH/URGE NT SEVERITY EMERGENCY 77835 [facility] 0 0 [facility] VISIT MODERATE SEVERITY OFFICE 69297 FAMILY DRENNEN, OUTPATIEN 0 0 CARE PREETI J T VISIT CLINIC [address] [facility] - 0 0 [facility] PERIODIC 40752 FAMILY DRENNEN, PREVENTIV 0 0 CARE PREETI J E MED EST CLINIC PATIENT PLLC 18-39 YRS OFFICE 80246 [facility] DRENNEN, OUTPATIEN 0 0 CARE PREETI J T VISIT CLINIC 15 PLLC MINUTES OFFICE 04419 [facility] DRENNEN, OUTPATIEN 9 9 CARE PREETI J T VISIT CLINIC 15 PLLC MINUTES OFFICE 13165 [facility] DRENNEN, OUTPATIEN 9 9 CARE PREETI J T VISIT CLINIC 15 PLLC MINUTES OFFICE 46371 [facility] DRENNEN, OUTPATIEN 9 9 CARE PREETI J T VISIT CLINIC 15 PLLC MINUTES [facility] 9 [facility] OFFICE 56739 FAMILY DRENNEN, OUTPATIEN 9 9 CARE PREETI J T VISIT CLINIC 15 PLLC MINUTES EMERGENCY 53145 [facility] JIMENEZ, 9 9 NIA ISABELLE R [facility] EMERGENCY T VISIT SERV PC MODERATE SEVERITY
--- OUTSIDE RECORDS SUMMARY | 2017-06-27 20:09 | External Medical Summary Rpt | CCD ---
Author Author , ALPESH Organization [facility] Address Unknown Phone [email or web address] Care Team Providers Care Fws Faculty Assistant Name Role Phone BUTROS KYUNG, BUTROS Unavailable Unavailable KYUNG [facility], Unavailable Unavailable [facility] DAVE RYA, Unavailable Unavailable DAVE RYA DVAE RYA, Unavailable Unavailable DAVE RYA PREETI DUGAN, Unavailable Unavailable PREETI DUGAN, ANGEL YEPEZ Unavailable Unavailable [facility], Unavailable Unavailable [facility] # Unavailable Unavailable [id number], [facility] # [id number] [facility] Unavailable Unavailable HOLDING, [facility] Unavailable Unavailable HOLDING, [facility]ING LABORATORY MU[facility] OF Unavailable Unavailable BILL HOLDINGS, LABORATORY [facility] BILL HOLDINGS ISABELLE JIMENEZ, Unavailable Unavailable ISABELLE JIMENEZ R [facility] Unavailable Unavailable CARE CLI, [facility] ADRIANNE ESPINOZA, Unavailable Unavailable ADRIANNE ESPINOZA [facility], [facility] Unavailable Unavailable DRUGS [facility], [facility] Unavailable Unavailable SURGICAL [facility] [place], [facility]F [place] Unavailable Unavailable MUNIZ SYE, MUNIZ SYE Unavailable Unavailable [facility], Unavailable Unavailable [facility] Unavailable Unavailable DAVID, [facility] DAVID IFTIKHAR MAT, IFTIKHAR MAT Unavailable Unavailable Purpose Continuity of Care Document - 11-15-2008 through 2016 Problems Code Diagnosis DOS Provider Status 18396 ASTHMA, 06-02-2014 [facility] UNSPECIFIED PRIMARY , CARE CLI UNSPECIFIED STATUS 2449 UNSPECIFIED 05-19-2014 [facility] HYPOTHYROID ISM 3671 MYOPIA 11-16-2013 DAVE RYA 07864 ASTHMA 07-11-2010 [facility] UNSPECIFIED [facility] WITH DAVID STATUS ASTHMATICUS 91673 ASTHMA 07-11-2010 [facility] UNSPECIFIED N EMERGENCY WITH PHYS EXACERBATIO N 10438 SHORTNESS 07-11-2010 [facility] [place] [facility] 89282 OTHER 07-11-2010 [facility] DYSPNEA AND [place] RESPIRATORY ABNORMALITI ES V1270 PERSONAL 07-11-2010 [facility] HISTORY [facility] UNSPECIFIED DAVID DIGESTIVE DISEASE 7831 ABNORMAL 06-19-2010 [facility] WEIGHT GAIN AMERIC HOLDING 7850 UNSPECIFIED 06-19-2010 [facility] TACHYCARDIA HOLDING V5869 LONG-TERM 06-19-2010 LAB [facility] (CURRENT) AMERIC USE OF HOLDING OTHER MEDICATIONS 5990 URINARY 05-09-2010 [facility] TRACT [facility] INFECTION DAVID SITE NOT SPECIFIED 6259 UNSPEC 05-09-2010 [facility] SYMPTOM [facility] ASSOC DAVID W/FEMALE GENITAL ORGANS 7881 DYSURIA 05-09-2010 [facility] 70991 ABDOMINAL 05-09-2010 [facility], N EMERGENCY UNSPECIFIED PHYS SITE 18969 [place] 04-17-2010 [facility] BREAST PLLC V259 UNSPECIFIED 03-30-2010 [facility] CONTRACEPTI [facility] VE MANAGEMENT V7231 ROUTINE 03-30-2010 LABORATORY GYNECOLOGIC [facility] OF [facility] EXAMINATION HOLDINGS 4930 EXTRINSIC 03-27-2010 [facility] ASTHMA SURGICAL V0481 NEED 09-06-2009 [facility] PROPHYLACTI CLINIC C PLLC VACCINATION &INOCULATIO N FLU V0489 NEED PROPH 09-06-2009 [facility] VACC[facility]ATION [facility] &INOCULAT [facility] OTH VIRAL DZ 7840 HEADACHE 04-07-2009 LAB [...] 6- 7- 00 ER 15 S ve RI 00 20 20 5 GR ED 10 [...] 20 20 7 60 10 10 PH TN 1 AR NC MA CARUSO CY # 24 71 2 64 09 09 1 60 30 KR 60 PA Ac 67 -2 -2 .0 OG 73 RK ti 90 2- 2- 00 ER 99 ER ve 90 20 20 2 60 10 10 PH TN 1 AR NC MA CARUSO CY # 24 71 2 00 07 09 3 28 28 KR 60 PA Ac 43 -1 -2 .0 OG 61 RK ti 00 5- 1- 00 ER 45 ER ve 53 20 20 7 01 10 10 PH TN 4 AR NC MA CARUSO CY # [...] [address] 00 10 09 2 30 30 KR [...] ED TO 1 AR S IN AXEL CY MO # NO -M 24 CR 71 [...] OG 60 EN ti IR 30 7- 8- 00 ER 11 NE ve 69 [...] 20 20 7 01 10 10 PH TN 4 AR NC MA CARUSO CY # 24 71 2 64 07 08 1 60 30 KR 60 PA Ac 67 -1 -1 .0 OG 61 RK ti 90 5- 8- 00 ER 53 ER ve 90 20 20 5 60 10 10 PH TN 1 AR NC MA CARUSO CY # 24 71 2 VA 00 07 07 0 70 7 KR 60 PA Ac ND 24 -2 -2 .0 OG 62 RK ti AZ 50 0- 0- 00 ER 18 ER ve OL 86 20 20 4 E 07 10 10 PH TN VA 0 AR NC GI MA CARUSO NA CY L # 0. 75 24 % 71 GE 2 L 00 07 07 0 14 7 KR 60 PA Ac 59 -1 -1 .0 OG 61 RK ti 13 5- 5- 00 ER 45 ER ve 97 20 20 5 05 10 10 PH TN 0 AR NC MA CARUSO CY # 24 71 2 00 07 07 3 28 28 KR 60 PA Ac 43 -1 -1 .0 OG 61 RK ti 00 5- 5- 00 ER 45 ER ve 53 20 20 7 01 10 10 PH TN 4 AR NC MA CARUSO CY # 24 71 2 64 07 07 1 60 30 KR 60 PA Ac 67 -1 -1 .0 OG 61 RK ti 90 5- 5- 00 ER 53 ER ve 90 20 20 5 60 10 10 PH TN 1 AR NC MA CARUSO CY # 24 71 2 AD 00 07 07 2 [address] Colin VA 17 -0 -0 .0 OG 60 EN ti IR 30 7- 7- 00 ER 11 NE ve 69 20 20 0 N 10 50 10 10 PH BR 0- 0 AR EN 50 MA DA CY J DI # SK US 24 71 2 LE 00 10 07 2 [address] Colin VO 52 -2 -0 .0 OG 14 [...] 07 2 [address] Colin BU 48 -2 -0 0. OG 14 [...] 02 00 6[address] Colin IT 2 -1 00 OG 31 EN ti HR 37 [...] 02 00 [address] TH 74 -2 -1 .0 OG 31 EN ti YL 60 8- 1- 00 ER 73 NE ve RI 00 20 20 0 N ED 10 10 10 PH BR NI 3 AR EN SO M DA LO L- J NE 71 4 2 MG DO SE PK 59 10 01 02 8[address] Ac 31 -2 -2 50 OG 14 EN ti 00 7- 8- 0 ER 49 NE ve 57 20 20 3 N 92 09 10 PH BR 0 AR EN M DA L- J 71 2 59 10 12 01 8. [address] Ac 31 -2 -3 50 OG 14 EN [...] 71 MC 2 G TA BL ET LE 00 10 12 01 30 30 [...] L- J 71 2 59 10 12 00 8[address] Ac 31 -2 -1 50 OG 14 EN [...] 10 00 8[address] Ac 31 -2 -2 50 OG 76 EN [...] 07 00 7. [address] Ac 31 -2 -3 29 OG 76 EN [...] ZK M AL L- LA 71 2 49 07 07 00 30 [...] L- J 71 2 59 10 07 01 8. [...] Procedures Procedure [place] [address] [facility] THYROID [address] [place] [address] STIMULATI NG HORMONE TSH COLLECTIO 83353 [facility] N VENOUS [address] [place] [address] BLOOD VENIPUNCT URE OPHTH 12603 [facility] 4 RYA RYA XM&EVAL COMPRE NEW PT 1/> VST RADIOLOGI 21107 [facility] [place] [facility] MAT C EXAM 0 RADIOLOGY CHEST 2 VIEWS FRONTAL&L ATERAL INJ J2930 [facility] METHYLPRD 0 [facility] NISOLONE DAVID DAVID SODIUM SUCCNAT TO 125 MG PRESSURIZ 62826 [facility] ED/NONPRE 0 [place] SSURIZED DAVID DAVID INHALATIO N TREATMENT LIPID 99186 [facility] LAB [facility] PANEL 0 AMERIC AMERIC HOLDING HOLDING GENERAL 59922 LAB MUNA LAB [facility] HEALTH 0 AMERIC AMERIC PANEL HOLDING HOLDING CULTURE 56718 [facility] BCT 0 [place] ISOL&PRSM DAVID DAVID PTV ID ISOLATE EA URINE URNLS DIP 12598 [facility] 0 [place] STICK/TAB DAVID DAVID LET REAGENT AUTO MICROSCOP Y GONADOTRO 03709 [facility] PIN 0 [place] CHORIONIC DAVID DAVID QUALITATI VE SUSCEPTIB 20741 [facility] LTY STDY 0 [facility]OUNT [facility] ANTIMICRB DAVID DAVID IAL MICRO/AGA R DILUTJ AREO MASK A7015 [facility] K[facility] USED W/ 0 SURGICAL SURGICAL DME NEB ADMN SET A7003 [facility] KENYON SM VOL 0 SURGICAL SURGICAL NONFILTR PNEUMAT NEBULIZR DISPBL NEBULIZER E0570 [facility] KENYON WITH 0 SURGICAL SURGICAL COMPRESSO R US BREAST 13491 [facility] [place] [facility] [place] REAL 0 RADIOLOGY TIME W/IMAGE DOCUMENTA TION IADNA 42156 LABORATOR LABORATOR CHLAMYDIA 0 Y MUNA OF Y MUNA OF BILL BILL TRACHOMAT HOLDINGS HOLDINGS IS AMPLIFIED PROBE TQ IADNA 30049 LABORATOR LABORATOR PAPILLOMA 0 Y MUNA OF Y MUNA OF VIRUS BILL BILL HUMAN HOLDINGS HOLDINGS AMPLIFIED PROBE TQ CYTP C/V 34082 LABORATOR LABORATOR AUTO THIN 0 Y MUNA OF Y MUNA OF LYR BILL BILL PREPJ SCR HOLDINGS HOLDINGS MNL RESCR PHYS IADNA 04042 LABORATOR LABORATOR NEISSERIA 0 Y MUNA OF Y MUNA OF BILL BILL GONORRHOE HOLDINGS HOLDINGS AE AMPLIFIED PROBE TQ ADMN SET A7003 [facility] KENYON SM VOL 0 SURGICAL SURGICAL NONFILTR PNEUMAT NEBULIZR DISPBL SPMTRY 53359 FAMILY DUGAN, W/VC 0 CARE PREETI J EXPIRATOR CLINIC Y CHRISTOPHER PLLC W/WO MXML VOL VNTJ IIV3 25940 FAMILY KAILEE, VACCINE 9 CARE PREETI J SPLIT CLINIC VIRUS 0.5 PLLC ML DOSAGE IM USE IM ADM 14134 FAMILY DUGAN, PRQ ID 9 CARE PREETI J SUBQ/IM CLINIC NJ[place] [address] LAB MUNA LAB MU[facility] THYROID 9 AMERIC AMERIC STIMULATI HOLDING HOLDING NG HORMONE TSH NONINVASI 09948 FAMILY DUGAN, VE 9 CARE PREETI J EAR/PULSE CLINIC O[place]IM[place] [address] LAB MUNA LAB MUNA THYROID 9 AMERIC AMERIC STIMULATI HOLDING HOLDING NG HORMONE TSH SPMTRY 99975 FAMILY DUGAN, W/VC 9 CARE PREETI J EXPIRATOR CLINIC Y CHRISTOPHER PLLC W/WO MXML VOL VNTJ BRNCDILAT 86199 FAMILY DUGAN, RSPSE 9 CARE PREETI J SPMTRY CLINIC PRE&POST- PLLC BRNCDILAT ADMN ECHO 13277 ALEX ESPINOZA TTHR R-T 9 JANEY [place]ou[place] 2D CLINIC W/WOM-MOD PSC E COMPL SPEC&COLR D THYROID 86638 LAB [facility] LAB MUNA HORM 9 AMERIC AMERIC UPTK/THYR HOLDING HOLDING OID HORMONE BINDING RATIO ECG 84326 FAMILY DUGAN, ROUTINE 9 CARE PREETI J ECG CLINIC W/LEAST PLLC 12 LDS W/I&R NONINVASI 23055 FAMILY DUGAN, VE 9 CARE PREETI J EAR/PULSE CLINIC OXIMETRY PLLC SINGLE DETER GENERAL 16616 LAB [facility] LAB MU[facility] HEALTH 9 AMERIC AMERIC [place] [address] LAB MUNA LAB MUNA THYROXINE 9 AMERIC AMERIC TOTAL HOLDING HOLDING APPLICATI 82202 [facility] SHORT 9 NIA [place] R ARM EMERGENCY SPLINT SERV PC FOREARM-H AND STATIC Encounters Encounter Start End Date Code Location Performer Type Date OFFICE 71136 [facility] 4 4 ADULT KYUNG T VISIT PRIMARY 15 CARE [facility] OFFICE 29641 [facility] OUTPATI[facility] 4 4 ADULT KYUNG T VISIT PRIMARY 15 CARE [facility] - OTHER 4 4 HOSPITAL OFFICE 68517 ME[facility] OUTPATIEN 4 4 ADULT KYUNG T NEW 45 PRIMARY MINUTES CARE [facility] - 0 0 [facility] OUTPATIEN DAVID T EMERGENCY 83816 [facility] ORTIZ GRE 0 0 NIA DEPARTMEN EMERGENCY T VISIT PHYS HIGH/URGE NT SEVERITY EMERGENCY 10419 [facility] MUNIZ SYE 0 0 NIA DEPARTMEN EMERGENCY T VISIT PHYS HIGH/URGE NT SEVERITY [facility] 0 0 [facility] DAVID T EMERGENCY [facility] [facility] 0 0 [facility] DAVID T VISIT MODERATE SEVERITY OFFICE 88375 FAMILY DRENNEN, OUTPATIEN 0 0 CARE PREETI J T VISIT CLINIC [address] [facility] - 0 0 [facility] PERI[facility] 64846 FAMILY DRENNEN, PREVENTIV 0 0 CARE PREETI J E MED EST CLINIC PATIENT PLLC 18-39 YRS OFFICE 63664 FAMILY DRENNEN, OUTPATIEN 0 0 CARE PREETI J T VISIT CLINIC 15 PLLC MINUTES OFFICE 78962 FAMILY DRENNEN, OUTPATIEN 9 9 CARE PREETI J T VISIT CLINIC 15 PLLC MINUTES OFFICE 90416 FAMILY DRENNEN, OUTPATIEN 9 9 CARE PREETI J T VISIT CLINIC 15 PLLC MINUTES OFFICE 34929 [facility] DRENNEN, OUTPATIEN 9 9 CARE PREETI J T VISIT CLINIC 15 PLLC MINUTES [facility] IAN OUTPATIEN [facility] OFFICE 66458 FAMILY DRENNEN, OUTPATIEN 9 9 CARE PREETI J T VISIT CLINIC 15 PLLC MINUTES EMERGENCY 31686 [facility] JIMENEZ, 9 9 NIA ISABELLE R DEPARTMEN EMERGENCY T VISIT SERV PC MODERATE SEVERITY
--- OUTSIDE RECORDS SUMMARY | 2017-06-27 20:09 | External Medical Summary Rpt | CCD ---
Author Author , ALPESH Organization [facility] Address Unknown Phone [email or web address] Care Team Providers Care Jboss Developer Name Role Phone BUTROS KYUNG, BUTROS Unavailable Unavailable KYUNG [facility], Unavailable Unavailable [facility] DAVE RYA, Unavailable Unavailable DAVE RYA DAVE RYA, Unavailable Unavailable DAVE RYA PREETI DUGAN, Unavailable Unavailable PREETI DUGAN, ANGEL YEPEZ Unavailable Unavailable [id number], Unavailable Unavailable [id number] # Unavailable Unavailable [id number], [facility] # [id number] [facility] Unavailable Unavailable HOLD[facility], LAB [...] Unavailable Unavailable [facility], Unavailable Unavailable [facility] Unavailable Unavailable DAVID, [facility] DAVID IFTIKHAR MAT, IFTIKHAR MAT Unavailable Unavailable Purpose Continuity of Care Document - 11-15-2008 through 2016 Problems Code Diagnosis DOS Provider Status 30251 ASTHMA, 06-02-2014 ME[facility] ADULT UNSPECIFIED PRIMARY , CARE CLI UNSPECIFIED STATUS 2449 UNSPECIFIED 05-19-2014 [facility] HYPOTHYROID ISM 3671 MYOPIA 11-16-2013 DAVE RYA 26048 ASTHMA 07-11-2010 [facility] UNSPECIFIED [facility] WITH DAVID STATUS ASTHMATICUS 09992 ASTHMA 07-11-2010 [facility] UNSPECIFIED N EMERGENCY WITH PHYS EXACERBATIO N 97312 SHORTNESS 07-11-2010 [facility] [place] [facility] RADIOLOG[facility] 87702 OTHER 07-11-2010 [facility] DYSPNEA AND [place] RESPIRATORY ABNORMALITI ES V1270 PERSONAL 07-11-2010 [facility] HISTORY [facility] UNSPECIFIED DAVID DIGESTIVE DISEASE 7831 ABNORMAL 06-19-2010 [facility] WEIGHT [facility] 7850 UNSPECIFIED 06-19-2010 [facility] TACHYCARDIA HOLDING V5869 LONG-TERM 06-19-2010 [facility] (CURRENT) AMERIC USE OF HOLDING OTHER MEDICATIONS 5990 URINARY 05-09-2010 [facility] TRACT [facility] INFECTION DAVID SITE NOT SPECIFIED 6259 UNSPEC 05-09-2010 [facility] SYMPTOM [facility] DAVID W/FEMALE GENITAL ORGANS 7881 DYSURIA 05-09-2010 [facility] 66288 ABDOMINAL 05-09-2010 [facility] PAIN, N EMERGENCY UNSPECIFIED PHYS SITE 40456 LUMP OR 04-17-2010 [facility] V259 UNSPECIFIED 03-30-2010 [facility] VE MANAGEMENT V7231 ROUTINE 03-30-2010 LABORATORY GYNECOLOGIC [facility] OF [facility] EXAMINATION HOLDINGS 4930 EXTRINSIC 03-27-2010 ROSS [...] 6- 7- 00 ER 15 S ve ME 00 20 20 5 GR ED 10 [...] 20 20 7 60 10 10 PH WV 1 AR NC MA CARUSO CY # 24 71 2 64 09 09 1 60 30 KR 60 PA Ac 67 -2 -2 .0 OG 73 RK ti 90 2- 2- 00 ER 99 ER ve 90 20 20 2 60 10 10 PH WV 1 AR NC MA CARUSO CY # 24 71 2 00 07 09 3 28 28 KR 60 PA Ac 43 -1 -2 .0 OG 61 RK ti 00 5- 1- 00 ER 45 ER ve 53 20 20 7 01 10 10 PH WV 4 AR NC MA CARUSO CY # [...] 20 20 7 01 10 10 PH WV 4 AR NC MA CARUSO CY # 24 71 2 64 07 08 1 60 30 KR 60 PA Ac 67 -1 -1 .0 OG 61 RK ti 90 5- 8- 00 ER 53 ER ve 90 20 20 5 60 10 10 PH WV 1 AR NC MA CARUSO CY # 24 71 2 VA 00 07 07 0 70 7 KR 60 PA Ac ND 24 -2 -2 .0 OG 62 RK ti AZ 50 0- 0- 00 ER 18 ER ve OL 86 20 20 4 E 07 10 10 PH WV VA 0 AR NC GI MA CARUSO NA CY L # 0. 75 24 % 71 GE 2 L 00 07 07 0 14 7 KR 60 PA Ac 59 -1 -1 .0 OG 61 RK ti 13 5- 5- 00 ER 45 ER ve 97 20 20 5 05 10 10 PH WV 0 AR NC MA CARUSO CY # 24 71 2 00 07 07 3 28 28 KR 60 PA Ac 43 -1 -1 .0 OG 61 RK ti 00 5- 5- 00 ER 45 ER ve 53 20 20 7 01 10 10 PH WV 4 AR NC MA CARUSO CY # 24 71 2 64 07 07 1 60 30 KR 60 PA Ac 67 -1 -1 .0 OG 61 RK ti 90 5- 5- 00 ER 53 ER ve 90 20 20 5 60 10 10 PH WV 1 AR NC MA CARUSO CY # [...] 8- 1- 00 ER 73 NE ve ME 00 20 20 0 N ED 10 [...] [place] [address] [facility] THYROID [address] [place] [address] STIMULATI NG HORMONE TSH COLLECTIO 00759 [facility] N VENOUS [address] [place] [address] BLOOD VENIPUNCT URE OPHTH 69734 [facility] 4 RYA RYA XM&EVAL COMPRE NEW PT 1/> VST RADIOLOGI 29895 [facility] [place] [facility] C EXAM 0 RADIOLOGY CHEST 2 VIEWS FRONTAL&L ATERAL INJ J2930 [facility] METHYLPRD 0 [facility] NISOLONE DAVID DAVID SODIUM SUCCNAT TO 125 MG PRESSURIZ 05631 [facility] ED/NONPRE 0 [facility] SSURIZED DAVID DAVID INHALATIO N TREATMENT LIPID 59276 [facility] PANEL 0 [facility]ING HOLDING GENERAL 24756 [facility] HEALTH 0 [facility] PANEL HOLDING HOLDING CULTURE 40834 [facility] BCT 0 [place] ISOL&PRSM DAVID DAVID PTV ID ISOLATE EA URINE URNLS DIP 97493 [facility] 0 [place] STICK/TAB DAVID DAVID LET REAGENT AUTO MICROSCOP Y GONADOTRO 49844 [facility] PIN 0 [place] CHORIONIC [facility] DAVID QUALITATI VE SUSCEPTIB 06016 [facility] LTY STDY 0 [facility] ANTIMICRB DAVID DAVID IAL MICRO/AGA R DILUTJ AREO MASK A7015 [facility] USED W/ 0 SURGICAL SURGICAL DME NEB ADMN SET A7003 [facility] SM VOL 0 SURGICAL SURGICAL NONFILTR PNEUMAT NEBULIZR DISPBL NEBULIZER E0570 [facility] WITH 0 SURGICAL SURGICAL COMPRESSO R US BREAST 53869 [facility] [place] [facility] [place] REAL 0 RADIOLOGY TIME W/IMAGE DOCUMENTA TION IADNA 01530 LABORATOR LABORATOR CHLAMYDIA 0 Y MUNA OF Y MUNA OF BILL BILL TRACHOMAT HOLDINGS HOLDINGS IS AMPLIFIED PROBE TQ IADNA 87279 LABORATOR LABORATOR PAPILLOMA 0 Y MUNA OF Y MUNA OF VIRUS BILL BILL HUMAN HOLDINGS HOLDINGS AMPLIFIED PROBE TQ CYTP C/V 24791 LABORATOR LABORATOR AUTO THIN 0 Y MUNA OF Y MUNA OF LYR BILL BILL PREPJ SCR HOLDINGS HOLDINGS MNL RESCR PHYS IADNA 74807 LABORATOR LABORATOR NEISSERIA 0 Y MUNA OF Y MUNA OF BILL BILL GONORRHOE HOLDINGS HOLDINGS AE AMPLIFIED PROBE TQ ADMN SET A7003 [facility] SM VOL 0 SURGICAL SURGICAL NONFILTR PNEUMAT NEBULIZR DISPBL SPMTRY 16002 FAMILY DUGAN, W/VC 0 CARE PREETI J EXPIRATOR CLINIC Y CHRISTOPHER PLLC W/WO MXML VOL VNTJ IIV3 14214 FAMILY KAILEE, VACCINE 9 CARE PREETI J SPLIT CLINIC VIRUS 0.5 PLLC ML DOSAGE IM USE IM ADM 86170 FAMILY DUGAN, PRQ ID 9 CARE PREETI J SUBQ/IM CLINIC NJ[place] [address] [facility] THYROID 9 AMERIC AMERIC STIMULATI HOLDING HOLDING NG HORMONE TSH NONINVASI 77214 FAMILY DUGAN, VE 9 CARE PREETI J EAR/PULSE CLINIC [place] [address] [facility] THYROID 9 AMERIC AMERIC STIMULATI HOLDING HOLDING NG HORMONE TSH SPMTRY 75039 FAMILY DUGAN, W/VC 9 CARE PREETI J EXPIRATOR CLINIC Y CHRISTOPHER PLLC W/WO MXML VOL VNTJ BRNCDILAT 56106 FAMILY DUGAN, RSPSE 9 CARE PREETI J SPMTRY CLINIC PRE&POST- PLLC BRNCDILAT ADMN ECHO 25335 ALEX ESPINOZA TTHR R-T 9 JANEY [facility]ouard 2D CLINIC W/WOM-MOD PSC E COMPL SPEC&COLR D THYROID 80184 [facility] HORM 9 AMERIC AMERIC UPTK/THYR HOLDING HOLDING OID HORMONE BINDING RATIO ECG 78401 FAMILY DUGAN, ROUTINE 9 CARE PREETI J ECG CLINIC W/LEAST PLLC 12 LDS W/I&R NONINVASI 87119 FAMILY DUGAN, VE 9 CARE PREETI J EAR/PULSE CLINIC OXIMETRY PLLC SINGLE DETER GENERAL 47242 [facility] HEALTH 9 AMERIC [employer] [place] [address] [facility] THYROXINE 9 AMERIC AMERIC TOTAL HOLDING HOLDING APPLICATI 75915 [facility] SHORT 9 NIA [place] R ARM EMERGENCY SPLINT SERV PC FOREARM-H AND STATIC Encounters Encounter Start End Date Code Location Performer Type Date OFFICE 52552 MEANS [facility]TROS OUTPATIEN 4 4 ADULT KYUNG T VISIT PRIMARY 15 CARE [facility] OFFICE 79427 MEANS BUTROS OUTPATIEN 4 4 ADULT KYUNG T VISIT PRIMARY 15 CARE [facility] - OTHER 4 4 HOSPITAL OFFICE 86177 MEANS BUTROS OUTPATIEN 4 4 ADULT KYUNG T NEW 45 PRIMARY MINUTES CARE [facility] - 0 0 [facility] OUTPATIEN DAVID T EMERGENCY 57952 [facility] ORTIZ GRE 0 0 NIA DEPARTMEN EMERGENCY T VISIT PHYS HIGH/URGE NT SEVERITY EMERGENCY 24710 [facility] MUNIZ SYE 0 0 NIA DEPARTMEN EMERGENCY T VISIT PHYS HIGH/URGE NT SEVERITY [facility] - 0 0 [facility] DAVID T EMERGENCY 43638 [facility] 0 0 [facility] DAVID T VISIT MODERATE SEVERITY OFFICE 98015 FAMILY DRENNEN, OUTPATIEN 0 0 CARE PREETI J T VISIT CLINIC [address] [facility] - 0 0 [facility] PER[facility] 25292 FAMILY DRENNEN, PREVENTIV 0 0 CARE PREETI J E MED EST CLINIC PATIENT PLLC 18-39 YRS OFFICE 92956 FAMILY DRENNEN, OUTPATIEN 0 0 CARE PREETI J T VISIT CLINIC 15 PLLC MINUTES OFFICE 37680 FAMILY DRENNEN, OUTPATIEN 9 9 CARE PREETI J T VISIT CLINIC 15 PLLC MINUTES OFFICE 83433 FAMILY DRENNEN, OUTPATIEN 9 9 CARE PREETI J T VISIT CLINIC 15 PLLC MINUTES OFFICE 35404 FAMILY DRENNEN, OUTPATIEN 9 9 CARE PREETI J T VISIT CLINIC 15 PLLC MINUTES [facility] [address] [facility] OFFICE 33223 FAMILY DRENNEN, OUTPATIEN 9 9 CARE PREETI J T VISIT CLINIC 15 PLLC MINUTES EMERGENCY 89136 [facility] JIMENEZ, 9 9 NIA ISABELLE R DEPARTMEN EMERGENCY T VISIT SERV PC MODERATE SEVERITY
--- OUTSIDE RECORDS SUMMARY | 2017-06-27 20:10 | External Medical Summary Rpt ---
Author Author ALPESH Miller, [employer] Organization [employer] Address Unknown Phone Unavailable
--- OUTSIDE RECORDS SUMMARY | 2017-06-27 20:10 | External Medical Summary Rpt | CCD ---
Demographics Preferred Language Turkmen Marital Status Unknown Sabianism Affiliation Unknown Race Unknown Ethnic Group Unknown Author Author , ALPESH BETTS Address Unknown Phone Immunization No patient found.
--- OUTSIDE RECORDS SUMMARY | 2017-06-27 20:10 | External Medical Summary Rpt | CCD ---
Demographics Preferred Language Slovak Marital Status Unknown Nondenominational Affiliation Unknown Race Unknown Ethnic Group Unknown Author Author , ALPESH BETTS Address Unknown Phone Immunization No patient found.
== END 2017-06-20 15:13 | disposition home or self-care (01) ==
LOC: ER 14:05 → UTC 14:05
DX: S93.602A Unspecified sprain of left foot, initial encounter (principal); X50.1XXA Overexertion from prolonged static or awkward postures, initial encounter; Y92.019 Unspecified place in single-family (private) house as the place of occurrence of the external cause; J45.909 Unspecified asthma, uncomplicated; Z88.0 Allergy status to penicillin